=== PATIENT | female | born 1965 | race Caucasian/White ===

== ENCOUNTER 2023-01-28 12:37 | Outpatient (CLI) | payer BC, SELFPAY ==
--- NOTE | 2023-01-28 13:00 | CRLHL7_ITS ---
For Patients: As a result of the Cures Act, medical imaging exams and procedure reports are released immediately into your electronic medical record. You may view this report before your referring provider. If you have questions, please contact your health care provider. BILATERAL DIGITAL SCREENING MAMMOGRAM WITH COMPUTER-AIDED DETECTION CLINICAL HISTORY: Routine screening exam. COMPARISON: None. TECHNIQUE: Digital mammogram in CC and MLO projections including computer-aided detection (CAD). BREAST COMPOSITION: There are areas of scattered fibroglandular density. FINDINGS: RIGHT Breast: Focal asymmetric density upper outer quadrant 7 cm from the nipple. LEFT Breast: No suspicious findings. IMPRESSION: RIGHT breast asymmetry/mass. RECOMMENDATIONS: Additional mammographic views of the RIGHT breast including 3D spot compression CC/MLO. RIGHT breast ultrasound may also be required. BI-RADS Category 0: Incomplete: Need Additional Imaging Evaluation and/or Prior Mammograms for Comparison The [facility] will contact the patient for follow-up. A lay language report of this examination will be provided to the patient. Dictated by David Cornell MD @ 01/31/2023 11:44:38 AM j/Dictated by: David Cornell MD @ 01/31/2023 11:44:00 AM (Electronically Signed)
== END 2023-01-28 12:38 | disposition home or self-care (01) ==
LOC: MAMMO 12:39
PROVIDERS: Visit Provider Family Medicine
DX: Z12.31 Encounter for screening mammogram for malignant neoplasm of breast (principal); N63.10 Unspecified lump in the right breast, unspecified quadrant
CPT/HCPCS: 77067

== ENCOUNTER 2023-01-28 14:22 | Outpatient (CLI) | payer BC, SELFPAY | END 2023-01-28 14:23 | disposition home or self-care (01) | LOC: NFLDREF 14:24 | PROVIDERS: Visit Provider Physician Assistant | DX: Z01.419 Encounter for gynecological examination (general) (routine) without abnormal findings (principal); E78.5 Hyperlipidemia, unspecified; E66.9 Obesity, unspecified | CPT/HCPCS: 80061; 82947 ==

== ENCOUNTER 2023-02-08 10:35 | Outpatient (CLI) | payer BC, SELFPAY ==
--- NOTE | 2023-02-08 10:45 | CRLHL7_ITS ---
For Patients: As a result of the Century Cures Act, medical imaging exams and procedure reports are released immediately into your electronic medical record. You may view this report before your referring provider. If you have questions, please contact your health care provider. RIGHT DIAGNOSTIC MAMMOGRAM WITH COMPUTER-AIDED DETECTION AND OMOSYNTHESIS, 02/08/2023 RIGHT ULTRASOUND, 02/08/2023 INDICATIONS: Possible asymmetry. TECHNIQUE: CC and MLO views. These mammographic images have been obtained using full-field digital technique. These mammographic images were interpreted with the benefit of computer-aided detection. Breast Tomosynthesis was used in this interpretation. COMPARISON FILM: 01/28/2023. BREAST COMPOSITION: There are scattered areas of fibroglandular density. FINDINGS: Spot compression views demonstrate slight persistence of the asymmetry best seen on the CC view. Ultrasound over the RIGHT retroareolar breast and the central superior breast at 11 o???clock to 1 o???clock position demonstrates no suspicious findings. IMPRESSION: Slight persistence of asymmetry on the CC view with negative ultrasound. No mammographic or sonographic findings for malignancy. To be conservative, would recommend short interval followup with mammogram in six months. ASSESSMENT: BI-RADS Category 3: Probably Benign A lay language report of this examination will be provided to the patient. [place] Elizabeth M.D. Diagnostic/Breast Radiologist [email or web address] Transcribed: 1:35 pm DW/Dictated by: [place] Elizabeth MD @ 02/08/2023 11:40:00 AM (Electronically Signed)
--- NOTE | 2023-02-08 11:15 | CRLHL7_ITS ---
For Patients: As a result of the Century Cures Act, medical imaging exams and procedure reports are released immediately into your electronic medical record. You may view this report before your referring provider. If you have questions, please contact your health care provider. PLEASE SEE RIGHT DIAGNOSTIC MAMMOGRAM OF SAME DAY FOR COMBINED REPORT. CRL:[email or web address] RD/Dictated by: [place] Elizabeth MD @ 02/08/2023 11:40:00 AM (Electronically Signed)
== END 2023-02-08 10:36 | disposition home or self-care (01) ==
LOC: US 10:36
PROVIDERS: Visit Provider Physician Assistant
DX: N63.10 Unspecified lump in the right breast, unspecified quadrant (principal); R92.8 Other abnormal and inconclusive findings on diagnostic imaging of breast
CPT/HCPCS: 76642; 77065; G0279

== ENCOUNTER 2023-09-12 09:29 | Outpatient (CLI) | payer BC, SELFPAY ==
--- NOTE | 2023-09-12 09:45 | CRLHL7_ITS ---
For Patients: As a result of the Cures Act, medical imaging exams and procedure reports are released immediately into your electronic medical record. You may view this report before your referring provider. If you have questions, please contact your health care provider. DIGITAL DIAGNOSTIC RIGHT MAMMOGRAM USING TOMOSYNTHESIS AND COMPUTER-AIDED DETECTION CLINICAL HISTORY: RIGHT breast six-month follow-up. COMPARISON: 02/08/2023, 01/28/2023. TECHNIQUE: Digital RIGHT mammogram in two projections. Tomosynthesis and CAD utilized. BREAST COMPOSITION: There are areas of scattered fibroglandular density. FINDINGS: 3D CC/MLO RIGHT breast mammogram images submitted. Stable fibroglandular tissue. No suspicious masses or architectural distortion. No suspicious calcifications or adenopathy. IMPRESSION: Normal RIGHT breast mammogram images. No evidence of malignancy. RECOMMENDATIONS: Routine BILATERAL screening mammography. Results and recommendations discussed with the patient. BI-RADS Category 2: Benign A lay language report of this examination will be provided to the patient. Dictated by David Cornell MD @ 09/12/2023 11:25:08 AM jj/Dictated by: David Cornell MD @ 09/12/2023 11:25:00 AM (Electronically Signed)
== END 2023-09-12 09:30 | disposition home or self-care (01) ==
LOC: MAMMO 09:30
PROVIDERS: Visit Provider Physician Assistant
DX: R92.8 Other abnormal and inconclusive findings on diagnostic imaging of breast (principal)
CPT/HCPCS: 77065; G0279

== ENCOUNTER 2024-02-20 13:21 | Outpatient (CLI) | payer BC, SELFPAY ==
--- NOTE | 2024-02-20 13:40 | MM_ITS ---
Patient: SHANNAN PAZ Facility:?[facility] Patient ID:?[id number] Site Patient ID:?[id number]. Site :?[id number] Study:?XRay-Breast Bilateral 3D W/CAD-02/20/2024 1:54:21 PM Ordering Physician:Jenni February Final Report: BILATERAL SCREENING MAMMOGRAM WITH COMPUTER-AIDED DETECTION AND TOMOSYNTHESIS TECHNIQUE: CC and MLO views were obtained. These mammographic images have been obtained using full-field digital technique. These mammographic images were interpreted with the benefit of computer-aided detection. Breast Tomosynthesis was used in this interpretation. COMPARISON FILM: 01/28/23, 02/08/23(RT), 09/12/23(RT). FINDINGS: There are scattered areas of fibroglandular density. IMPRESSION: There is no radiographic evidence for malignancy. ASSESSMENT: BI-RADS Category 1: Negative RECOMMENDATION: Routine screening mammogram in 1 year. A lay language report of this examination will be provided to the patient. David Cornell M.D. Diagnostic Radiologist [email or web address] DSM/sp R& Transcribed: 2:07 p.m. SP/Dictated by: David Cornell MD @ 02/21/2024 9:16:00 AM Signed by:?Dvaid Cornell MD @02/21/2024 3:20:07 PM (Electronic Signature)
== END 2024-02-20 13:22 | disposition home or self-care (01) ==
LOC: MAMMO 13:21
PROVIDERS: Visit Provider Physician Assistant
DX: Z12.31 Encounter for screening mammogram for malignant neoplasm of breast (principal)
CPT/HCPCS: 77063; 77067

== ENCOUNTER 2025-11-04 13:02 | Outpatient (CLI) | payer BC, SELFPAY ==
--- NOTE | 2025-11-04 13:20 | CRLHL7_ITS ---
For Patients: As a result of the Century Cures Act, medical imaging exams and procedure reports are released immediately into your electronic medical record. You may view this report before your referring provider. If you have questions, please contact your health care provider. INDICATION: BILATERAL SCREENING MAMMOGRAM, ASYMPTOMATIC 60 Y/O FEMALE COMPARISON: 02/20/2024, 09/12/2023, 02/08/2023 TECHNIQUE: Digital mammogram in CC and MLO projections including computer-aided detection (CAD) and tomosynthesis. BREAST COMPOSITION: There are scattered areas of fibroglandular density. FINDINGS: No suspicious findings. ASSESSMENT: BI-RADS 1 Negative RECOMMENDATION: Annual screening mammogram. A lay language report of this examination will be provided to the patient. Dictated by: Leigh Kay MD @ 11/05/2025 13:34:51 (Electronically Signed)
== END 2025-11-04 13:03 | disposition home or self-care (01) ==
LOC: MAMMO 13:04
PROVIDERS: Visit Provider Family Medicine
DX: Z12.31 Encounter for screening mammogram for malignant neoplasm of breast (principal)
CPT/HCPCS: 77063; 77067